=== PATIENT | female | born 1980 ===

== ENCOUNTER 2017-11-01 18:01 | Day surgery (SDC) | payer SELFPAY ==
[2017-11-01 18:56] VITALS: BMI 26.2
[2017-11-01] MEDS ORDERED: Lactated Ringer's 1,000 ML IV SCH ×2 (19:30)
[2017-11-01 19:59] LABS: #Eosinphils 0.1 thou/uL (0.0-0.7); #Lymphocytes 1.7 thou/uL (1.20-3.40); #Monocytes 0.6 thou/uL (0.11-0.59); #Neutrophils 7.3 thou/uL (1.40-6.50); %Basophils 0.2 % (0.0-1.0); %Eosinophils 0.8 % (0.0-10.0); %Lymphocytes 17.3 % (21.0-51.0); %Monocytes 6.1 % (0.0-10.0); %Neutrophils 75.6 % (42.0-75.0); Hemoglobin 12.3 g/dL (12.0-16.0); Mean Corpuscular HGB CONC 35.9 g/dL (32.0-36.0); Mean Corpuscular Hemoglobin 29.1 pg (27.0-31.0); Mean Corpuscular Volume 81.2 fL (78.0-98.0); Platelet Count 147 thou/uL (130-400); RBC Distribution Width 12.1 % (11.5-14.5); Red Blood Cell (RBC) Count 4.22 mill/uL (4.20-5.40); White Blood Cell (WBC) Count 9.6 thou/uL (4.8-10.8)
[2017-11-01 20:04] LABS: Bilirubin Negative (Negative); Blood, Urine Negative (Negative); Clarity CLEAR (Clear); Glucose, Urine (Dipstick) Negative (Negative); Leukocyte Small (Negative); Nitrite Negative (Negative); Protein, Urine (Dipstick) Negative (Neg-Trace); Specific Gravity, Urine 1.008 (1.002-1.036); Urobilinogen 0.2 mg/dL (0.2-1.0)
[2017-11-01 20:06] LABS: Bacteria/HPF None Seen HPF (None Seen); Hyaline Casts/LPF 0-3 HYALINE CAST LPF (0-3 Hyaline); Pathc Cast-AUWi Flag 0.29 (0-2.49); RBC/HPF 0-3 HPF (0-3); Squamous Epithelial 0-3 HPF (0-3); WBC/HPF 0-3 HPF (0-3)
[2017-11-01] MEDS ORDERED: Ibuprofen 200 MG TAB PO SCH (21:00)
[2017-11-01] MEDS ORDERED: Acetaminophen 500 MG TAB PO SCH (21:00)
--- NOTE | 2017-11-01 23:07 | ER ---
DATE OF ENCOUNTER: 11/01/2017 OB ER ENCOUNTER [employer] [employer]: Dr. Kj Trujillo. CHIEF COMPLAINT: Leg pain and abdominal pain. HISTORY OF PRESENT ILLNESS: The patient is a 37-year-old G4, P3 female with an intrauterine pregnanc y at 24 weeks' gestation, who is presenting today with a 1-day history of abdominal pain and leg pain . She reports that her left leg hurts much more than her right. She reports she has pain in her abd omen and pelvis that shoots down to her leg and she has a kind of numbness. She reports that today s he has been having pains that come and go in her lower pelvis, but cannot give a description of how o ften. The patient admits that she, in the last 7-10 days, has been extremely busy moving her house a nd family to another location and began graduate school yesterday. She reports that she has had 2 cu ps of coffee today with little to belts to drink. She denies any other complications with this pregn jossue, has had 3 term deliveries without complications up until this point. Patient reports that her legs feel hot and reports that she has not felt her baby move in the last day or so. PAST MEDICAL HISTORY: Negative. PAST SURGICAL HISTORY: Negative. ALLERGIES: No known drug allergies. MEDICATIONS: vitamins. SOCIAL HISTORY: Denies drug, alcohol, or tobacco use. 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 OB LABS: Unavailable. REVIEW OF SYSTEMS: The patient denies any fever or fall. Patient reports chronic headaches and take s medication at home on a regular basis that have been prescribed, but is unable to tell me the name. Patient denies nausea, vomiting, diarrhea, constipation. She denies any new rashes. She denies va ginal bleeding. She does admit that she has been fighting with a yeast infection and has been taking [id number] medications, but does not feel it has been helping. The patient denies any urinary urgency or frequency. PHYSICAL EXAMINATION: VITAL SIGNS: Blood pressure is 121/65, heart rate of 81, respiratory rate of 20, satting 90% on room air, temperature 98.4. GENERAL: She does appear to be in no acute distress on initial evaluation. She is alert and oriente d, cooperative, and pleasant to interact with. HEENT: Head is normocephalic, atraumatic. LUNGS: Clear to auscultation bilaterally. HEART: Regular rate and rhythm. ABDOMEN: Soft and gravid. She does have some tenderness with deviation of the uterus in her lower p vernon. She not have any suprapubic tenderness. She has exquisite muscular tenderness in her lower e xtremities, particularly left worse than right. GENITOURINARY EXAM: Vulva is without masses, lesions, or erythema. She does have a kind of a clumpy discharge, immediately noticed upon speculum exam. Cervix appears to be closed. GC, chlamydia, and HAM MARKER-3 were both collected. Cervix on digital exam is closed and thick and does not feel labored. heart tracing shows a fetus with a baseline in the 140s and appropriate for gestational age wit h moderate long-term variability, already demonstrating accelerations. Tocometer shows some irritabi lity and contractions early on in her evaluation that has since dissipated with hydration and food. LABORATORY STUDIES: Urinalysis shows clear yellow urine with a spec gravity of 1.008, 15 ketones, sm all leukocyte esterase, no bacteria, no squamous cells. CBC shows a white count of 9.6, hemoglobin 1 2.3, hematocrit 34.3, platelets 147,000. HAM MARKER-3 demonstrates presence of Jaky, negative for Trichom onas and Gardnerella. ASSESSMENT AND PLAN: The patient is a 37-year-old G4, P3 female with an intrauterine at 24 weeks with significant musculoskeletal pain, likely secondary to her increased exertional activity l ast few days with moving to a new home and beginning her graduate program. With hydration and eating , the contractions have dissipated. The patient was given 400 mg of ibuprofen and 1 gram of Tylenol while she is here to help with inflammation and discomfort in her legs. The patient is being dischar ged to home. She has instructions to take Tylenol, ibuprofen for a couple days, and then to disconti nue her ibuprofen. The patient has also been given a script for Diflucan 450 mg to be taken weekly, 2 tablets; and has instructions to follow up with Dr. Trujillo as scheduled.
[2017-11-04 19:02] LABS: Chlamydia by PCR Not Detected (NotDetected); GC by PCR Not Detected (NotDetected)
== END 2017-11-01 22:40 | disposition home or self-care (01) ==
LOC: L&D/OP 18:01
PROVIDERS: ATTEND Family Medicine
DX: O09.522 Supervision of elderly multigravida, second trimester (principal); O99.89 Other specified diseases and conditions complicating pregnancy, childbirth and the puerperium; M79.606 Pain in leg, unspecified; R10.9 Unspecified abdominal pain; Z3A.24 24 weeks gestation of pregnancy
CPT/HCPCS: 36415; 81001; 85025; 87480; 87491; 87510; 87591; 87660; 99285

== ENCOUNTER 2018-02-13 21:00 | Inpatient (IN) | payer OTHER, SELFPAY ==
[2018-02-15] MEDS ORDERED: HYDROcodone/Acetaminophen 5/325 mg Tablet PO PRN ×3 (07:55→20:42)
[2018-02-15] MEDS ORDERED: Ibuprofen 800 MG TAB PO PRN (07:55)
[2018-02-15] MEDS ORDERED: Carboprost 250 MCG/ML AMP IM PRN (07:55)
[2018-02-15] MEDS ORDERED: Diphenoxylate HCl/Atropine Tablet PO PRN (07:55)
[2018-02-15] MEDS ORDERED: Butorphanol Tartrate 1 MG/ML VIAL SLOW IVP PRN (07:55)
[2018-02-15] MEDS ORDERED: Lidocaine 1% (PF) 30 ML VIAL SC PRN (07:55)
[2018-02-15] MEDS ORDERED: NS / Oxytocin 40 units/1000ml 1,000 ML IV PRN (07:55)
[2018-02-15] MEDS ORDERED: Ondansetron PF 4 MG/2 ML Vial IVP PRN ×3 (07:55→20:42)
[2018-02-15] MEDS ORDERED: Methylergonovine 0.2 MG/ML VIAL IM PRN (07:55)
[2018-02-15] MEDS ORDERED: Promethazine HCl 25 MG/ML VIAL IM PRN ×2 (07:55→14:54)
[2018-02-15] MEDS ORDERED: Misoprostol 200 MCG TAB PR PRN (07:55)
[2018-02-15] MEDS ORDERED: NS w/ Oxytocin 10 units 500 ML IV SCH ×2 (08:00)
[2018-02-15] MEDS ORDERED: Penicillin G Potassium 5 MILL.UNITS in Sodium Chloride 0.9% 100 ML IVPB SCH (08:00)
[2018-02-15] MEDS ORDERED: Lactated Ringer's 1,000 ML IV SCH (08:00)
[2018-02-15 10:49] LABS: Hemoglobin 12.5 g/dL (12.0-16.0); Mean Corpuscular HGB CONC 33.9 g/dL (32.0-36.0); Mean Corpuscular Hemoglobin 26.8 pg (27.0-31.0); Mean Corpuscular Volume 78.9 fL (78.0-98.0); Mean Platelet Volume 10.8 fL (7.4-10.4); Platelet Count 144 thou/uL (130-400); RBC Distribution Width 12.8 % (11.5-14.5); Red Blood Cell (RBC) Count 4.67 mill/uL (4.20-5.40)
[2018-02-15 11:28] LABS: HBSAg Index 0.23 S/CO (0-0.99); Hep B Surf Ag Non-Reactive S/CO (NonReactive); Syphilis Antibody Nonreactive (Nonreactive)
[2018-02-15] MEDS ORDERED: Fentanyl 4 mcg/Bup 0.1% Cadd 100 ML ONE (13:30)
[2018-02-15] MEDS ORDERED: ePHEDrine/0.9% NaCl/PF SYRINGE 50 mg/10 ml SLOW IVP PRN (14:54)
[2018-02-15] MEDS ORDERED: diphenhydrAMINE 50 MG/ML VIAL IVP PRN (14:54)
[2018-02-15] MEDS ORDERED: Acetaminophen 325 MG TAB PO PRN (14:54)
[2018-02-15] MEDS ORDERED: Eucerin (Mineral Oil/Petrolatum,White) 30 gm Jar TOP PRN (14:54)
[2018-02-15] MEDS ORDERED: Naloxone HCl 0.4 mg/ml Vial IVP PRN ×2 (14:54)
[2018-02-15] MEDS ORDERED: Lactated Ringer's 500 ML IV PRN (14:54)
[2018-02-15] MEDS ORDERED: Communication Order-Pharmacy FS SCH (15:00)
[2018-02-15] MEDS ORDERED: Fentanyl 4 mcg/Bupivacaine 0.1% Cassette 100 ML EPIDURAL SCH (15:00)
[2018-02-15] MEDS: Penicillin G 2.5 MILL.units 2.5 MILL.UNITS in Premix Bag 1 BAG IVPB SCH (16:10)
[2018-02-15] MEDS ORDERED: Milk Of Magnesia 30 ML UDCUP PO PRN (20:42)
[2018-02-15] MEDS ORDERED: Lanolin Ointment 7 GM TUBE TOP PRN (20:42)
[2018-02-15] MEDS ORDERED: Benzocaine/Menthol 20-0.5% 60 ML CAN TOP PRN (20:42)
[2018-02-15] MEDS ORDERED: Preparation H Ointment 28 GM TUBE PR PRN (20:42)
[2018-02-15] MEDS ORDERED: diphenhydrAMINE 25 MG CAP PO PRN (20:42)
[2018-02-15] MEDS ORDERED: NS / Oxytocin 40 units/1000ml 1,000 ML IV SCH (20:42)
[2018-02-15] MEDS ORDERED: Bisacodyl 10 MG SUPP PR PRN (20:42)
[2018-02-15] MEDS: Ibuprofen 800 MG TAB PO SCH (21:49)
[2018-02-15] MEDS: Docusate Calcium (SURFAK) 240 MG CAP PO SCH (21:49)
--- NOTE | 2018-02-16 01:56 | PDOC.PP ---
Post Progress Note Post Day #: 1 Subjective: 37 yo , GBS+, advanced maternal age delivered by w 2 degree perineal laceration. States she has slept well. Denies abdominal pain or cramping. Less bleeding than a regular menses. Able to eat, walk, and void without difficulty. PO intake tolerated: yes Flatus: yes Ambulation: yes Vital Signs (12 hours) Temp Pulse Resp BP Pulse Ox 02/15/18 23:30 98.8 F 82 18 96/50 L 02/15/18 22:30 99.4 F 82 18 115/55 L 95 02/15/18 21:25 71 18 115/72 98 Weight Weight 63.503 kg - Physical Examination General: NAD Cardiovascular: no m/r/g, RRR Respiratory: clear to auscultation bilaterally, non-labored breathing Abdominal: + bowel sounds, appropriately TTP Fundus firm & at: umbilicus Extremities: negative homans (B) Skin: no rash Neurological: no gross focal deficits Psychiatric: A&Ox3, normal affect Result Diagrams: 02/15/18 10:10 Additional Labs: Post Labs Blood Type O POSITIVE 02/15/18 10:10 Hep Bs Antigen Non-Reactive S/CO (NonReactive) 02/15/18 10:10 (1) care and examination Code(s): Z39.2 - ENCOUNTER FOR ROUTINE FOLLOW-UP Status: Acute - Assessment/Plan # PP day 1 - , 2nd degree lac - no pain, less bleeding than menses - check hgb in Am - plan for d/c on 02/17 - standard PP care <Nicolas Faye - Last Filed: 02/16/18 01:54> Vital Signs (12 hours) Temp Pulse Resp BP Pulse Ox 02/16/18 03:50 97.9 F 71 16 91/55 L 94 L 02/15/18 23:30 98.8 F 82 18 96/50 L 02/15/18 22:30 99.4 F 82 18 115/55 L 95 02/15/18 21:25 71 18 115/72 98 Weight Weight 63.503 kg Result Diagrams: 02/15/18 10:10 Additional Labs: Post Labs Blood Type O POSITIVE 02/15/18 10:10 Hep Bs Antigen Non-Reactive S/CO (NonReactive) 02/15/18 10:10 <Christian Addison - Last Filed: 02/16/18 06:36> Attending Addendum - Attending Addendum I personally evaluated the patient and discussed the management with Dr. Faye. I agree with the Assessment and Plan documented above. <Christian Addison - Last Filed: 02/16/18 06:36>
[2018-02-16] MEDS: Penicillin G 2.5 MILL.units 2.5 MILL.UNITS in Premix Bag 1 BAG IVPB SCH (02:19)
[2018-02-16] MEDS: Ibuprofen 800 MG TAB PO SCH ×3 (05:40→21:52)
[2018-02-16 06:49] LABS: Hemoglobin 10.4 g/dL (12.0-16.0); Mean Corpuscular HGB CONC 33.6 g/dL (32.0-36.0); Mean Corpuscular Hemoglobin 26.7 pg (27.0-31.0); Mean Corpuscular Volume 79.5 fL (78.0-98.0); Mean Platelet Volume 10.7 fL (7.4-10.4); Platelet Count 121 thou/uL (130-400); RBC Distribution Width 12.6 % (11.5-14.5); Red Blood Cell (RBC) Count 3.91 mill/uL (4.20-5.40); White Blood Cell (WBC) Count 8.9 thou/uL (4.8-10.8)
[2018-02-16] MEDS: Ferrous Sulfate 325 MG TAB PO SCH ×2 (08:51→17:02)
[2018-02-16] MEDS: Prenatal Vitamin 1 TAB PO SCH (08:52)
[2018-02-16] MEDS: Docusate Calcium (SURFAK) 240 MG CAP PO SCH ×2 (08:52→21:52)
[2018-02-16 21:05] VITALS: TEMP 98.3
--- NOTE | 2018-02-17 00:30 | PDOC.PP ---
Post Progress Note Post Day #: 2 Subjective: No significant overnight events. Patient doing well. She is having some mild abdominal cramping while , but overall she feels better than she did yesterday. She is tolerating PO and ambulating without difficulty. Patient states she has minimal bleeding. PO intake tolerated: yes Flatus: yes Ambulation: yes Vital Signs (12 hours) Temp Pulse Resp BP Pulse Ox 02/16/18 20:18 98.3 F 71 18 114/58 L 98 02/16/18 16:39 97.7 F 64 16 91/54 L 02/16/18 12:34 97.7 F 80 14 92/54 L Weight Weight 63.503 kg - Physical Examination General: NAD Cardiovascular: no m/r/g, RRR Respiratory: clear to auscultation bilaterally, non-labored breathing Abdominal: + bowel sounds, lochia (minimal), no distention, appropriately TTP Fundus firm & at: umbilicus Neurological: no gross focal deficits Psychiatric: A&Ox3, normal affect Result Diagrams: 02/16/18 05:56 Additional Labs: Post Labs Blood Type O POSITIVE 02/15/18 10:10 Hep Bs Antigen Non-Reactive S/CO (NonReactive) 02/15/18 10:10 (1) (spontaneous vaginal delivery) Code(s): O80 - ENCOUNTER FOR FULL-TERM UNCOMPLICATED DELIVERY Status: Acute (2) care and examination Code(s): Z39.2 - ENCOUNTER FOR ROUTINE FOLLOW-UP Status: Acute (3) Term delivered Code(s): O80 - ENCOUNTER FOR FULL-TERM UNCOMPLICATED DELIVERY Status: Acute (4) GBS (group B Streptococcus carrier), +RV culture, currently Code(s): O99.820 - STREPTOCOCCUS B CARRIER STATE COMPLICATING Status : Acute (5) Advanced maternal age (AMA) in Code(s): RGS2332 - Status: Acute (6) Thrombocytopenia Code(s): D69.6 - THROMBOCYTOPENIA, UNSPECIFIED Status: Acute (7) Anemia affecting Code(s): O99.019 - ANEMIA COMPLICATING , UNSPECIFIED TRIMESTER Status : Acute - Assessment/Plan Term , delivered - PPD #2 - , 2nd degree lac s/p repair - no pain, less bleeding than menses - plan for d/c today - standard PP care GBS Positive - Adequately treated Thrombocytopenia - Mild, continue to monitor as outpatient Anemia of - Will likely improve - Iron supplementation PP Dispo: Patient doing well. Plan for d/c home today with follow up [facility]. Advised pelvic rest x6 weeks. <Jannette Galicia - Last Filed: 02/17/18 00:40> Vital Signs (12 hours) Temp Pulse Resp BP Pulse Ox 02/16/18 20:18 98.3 F 71 18 114/58 L 98 02/16/18 16:39 97.7 F 64 16 91/54 L Weight Weight 140 lb Result Diagrams: 02/16/18 05:56 Additional Labs: Post Labs Blood Type O POSITIVE 02/15/18 10:10 Hep Bs Antigen Non-Reactive S/CO (NonReactive) 02/15/18 10:10 - Assessment/Plan Faculty: Cleared for discharge. patient seen and examined. No acute concerns. <Baltazar Alejandra - Last Filed: 02/17/18 01:07>
[2018-02-17] MEDS: Ibuprofen 800 MG TAB PO SCH (05:27)
[2018-02-17] MEDS: Ferrous Sulfate 325 MG TAB PO SCH (10:12)
[2018-02-17] MEDS: Prenatal Vitamin 1 TAB PO SCH (10:12)
[2018-02-17] MEDS: Docusate Calcium (SURFAK) 240 MG CAP PO SCH (10:12)
[2018-02-17 18:03] VITALS: BP 127/68
[2018-02-18] MEDS ORDERED: Bupivacaine 0.25% HCL 30 ML VIAL ONE (07:23)
--- NOTE | 2018-02-21 14:04 | PQF ---
ANAIS SEARS ANGELI CORTEZ [id number] [facility] [id number] [id number] CLINICAL DOCUMENTATION CLARIFICATION FORM: POST DISCHARGE DATE: 02/21/2018 ATTN: Dr. Alejandra Please exercise your independent, professional judgment in responding to the clarification form. Clinical indicators are provided on the bottom of this form for your review Please clarify cause of Anemia affecting as: Please check appropriate box(s): [ ] Acute blood loss anemia [ x] Anemia due to (please specify) mild anemia state due to delivery [ ] Other diagnosis (please specify) [ ] Unable to determine In addition, please specify: Present on Admission (POA): [ ] Yes [x ] No [ ] Unable to determine For continuity of documentation, please document condition throughout progress notes and discharge summary. Thank You. CLINICAL INDICATORS - SIGNS / SYMPTOMS / LABS Per post delivery progress notes: Anemia affecting . Low hemoglobin and/or hematocrit: Hemoglobin 12/7 12.5. Hematocrit / 36.8 . Hemoglobin / 10.4. Hematocrit / 31.1 . Estimated blood loss 150 mL. RISK FACTORS Status post vaginal delivery with second degree perineal laceration 02/15/18. TREATMENTS: Ferrous Sulfate 325 mg po bid 02/16/18. (This form is maintained as a part of the permanent medical record) 2014 [employer] All Rights Reserved [email or web address] [phone] [email or web address]
== END 2018-02-17 18:12 | disposition home or self-care (01) | DRG 807 ==
LOC: L&D 02-15 07:38 → 3SE 02-15 21:35
PROVIDERS: ADMIT Family Medicine; ATTEND Family Medicine
PROC: 10E0XZZ Delivery of Products of Conception, External Approach (ICD-10-PCS; principal; 2018-02-15)
PROC: 0KQM0ZZ Repair Perineum Muscle, Open Approach (ICD-10-PCS; 2018-02-15)
PROC: 3E033VJ Introduction of Other Hormone into Peripheral Vein, Percutaneous Approach (ICD-10-PCS; 2018-02-15)
PROC: 10907ZC Drainage of Amniotic Fluid, Therapeutic from Products of Conception, Via Natural or Artificial Opening (ICD-10-PCS; 2018-02-15)
DX: O99.824 Streptococcus B carrier state complicating childbirth (principal); Z37.0 Single live birth; O70.1 Second degree perineal laceration during delivery; O72.3 Postpartum coagulation defects; D69.6 Thrombocytopenia, unspecified; O90.81 Anemia of the puerperium; D64.9 Anemia, unspecified; Z3A.39 39 weeks gestation of pregnancy
CPT/HCPCS: 36415; 51702; 85027; 86780; 86850; 86900; 86901; 87340; J2405; J2540; J7050

== ENCOUNTER 2018-02-19 13:32 | Emergency (ER) | payer MEDICAID, SELFPAY | END 2018-02-19 14:51 | disposition home or self-care (01) | LOC: ERS 13:32 | DX: N61.0 Mastitis without abscess (principal) | CPT/HCPCS: 99283 ==